=== PATIENT | male | born 1950 | race African-American/Black ===

== ENCOUNTER 2016-12-21 20:08 | Emergency (ER) | payer OTHER ==
[2016-12-21 20:17] VITALS: BP 130/81; TEMP 97.7; BMI 24.2
--- NOTE | 2016-12-21 20:23 | PDOC ---
History of Present Illness - General History Source: Patient Exam Limitations: No Limitations - History of Present Illness Initial Comments: 12/21/16 20:39 The patient is a 66 year old male with a significant past medical history of chronic left-sided numbness and frequent tingling on the left side of face, who presents to the ER with cramps in bilateral legs for two days. Patient states he had a sudden onset of cramping in the left calf last night. He reports that the cramping persisted and he developed cramps on the right calf this morning. Patient says the cramping is accompanied by the chronic left-sided numbness. Patient also complains of ringing in the ears for several weeks. Patient reports he takes [id number] Calcium and Magnesium tablets. 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 <Summer Gotti - Last Filed: 12/21/16 20:39> <Eliane Wisdom - Last Filed: 12/21/16 23:00> - General Chief Complaint: Muscle Cramping Stated Complaint: CRAMPS IN LEG SINCE YESTERDAY Time Seen by Provider: 12/21/16 20:22 Past History <Summer Gotti - Last Filed: 12/21/16 20:39> - Past Medical History Other medical history: Pt denies - Psycho/Social/Smoking Cessation Hx Suicidal Ideation: No Smoking History: Never smoked Hx Alcohol Use: No Drug/Substance Use Hx: No Substance Use Type: None <Eliane Wisdom - Last Filed: 12/21/16 23:00> - Past Medical History Allergies/Adverse Reactions: Allergies Allergy/AdvReac Type Severity Reaction Status Date / Time No Known Allergies Allergy Verified 12/21/16 20:13 Home Medications: Ambulatory Orders NK [No Known Home Medication] 12/21/16 Review of Systems - Review of Systems Able to Perform ROS?: Yes Comments:: 12/21/16 20:40 CONSTITUTIONAL: Absent: fever, no chills, no fatigue EYES: Absent: visual changes ENT: Present: (+) tinnitus Absent: ear pain, no sore throat CARDIOVASCULAR: Absent: chest pain, no palpitations RESPIRATORY: Absent: cough, no SOB GI: Absent: abdominal pain, no nausea, no vomiting, no constipation, no diarrhea GENITOURINARY: Absent: dysuria, no frequency, no hematuria MUSCULOSKELETAL: Present: (+) Lower extremity cramping and numbness Absent: back pain, no arthralgia SKIN: Absent: rash NEURO: Absent: headache <Summer Gotti - Last Filed: 12/21/16 20:39> *Physical Exam - Vital Signs Last Vital Signs Temp Pulse Resp BP Pulse Ox 97.7 F 58 L 19 130/81 100 12/21/16 20:14 12/21/16 20:14 12/21/16 20:14 12/21/16 20:14 12/21/16 20:14 - Physical Exam Comments: 12/21/16 20:41 GENERAL: Well-appearing, well-nourished. No apparent distress. HEENT: Normocephalic, atraumatic. PERRL, EOM intact. CARDIOVASCULAR: Normal S1, S2. Regular rate and rhythm. PULMONARY: Clear to auscultation bilaterally. ABDOMEN: Soft, non-distended, non-tender. EXTREMITIES: Normal ROM in all four extremities. No gross deformities. SKIN: Warm, dry. No rash NEUROLOGICAL: No focal neurological deficits. <Summer Gotti - Last Filed: 12/21/16 20:39> - Vital Signs Last Vital Signs Temp Pulse Resp BP Pulse Ox 97.7 F 58 L 19 130/81 100 12/21/16 20:14 12/21/16 20:14 12/21/16 20:14 12/21/16 20:14 12/21/16 20:14 <Eliane Wisdom - Last Filed: 12/21/16 23:00> ED Treatment Course - LABORATORY CBC & Chemistry Diagram: 12/21/16 20:45 12/21/16 20:45 <Eliane Wisdom - Last Filed: 12/21/16 23:00> Medical Decision Making - Medical Decision Making 12/21/16 22:59 Labd normal; exam normal. Pt will be discharged home. He feels better with hydration. Pt advised to stop taking mag+/ca+ supplemets and to get his supplementation from actual food, fruits and veggies. <Eliane Wisdom - Last Filed: 12/21/16 23:00> *DC/Admit/Observation/Transfer - Attestations Scribe Attestion: 12/21/16 20:42 Documentation prepared by Sumemr Gotti, acting as medical billing manager for Eliane Wisdom MD. <Summer Gotti - Last Filed: 12/21/16 20:39> - Discharge Dispostion Admit: No <Eliane Wisdom - Last Filed: 12/21/16 23:00> Diagnosis at time of Disposition: Muscle cramps - Discharge Dispostion Disposition: HOME Condition at time of disposition: Stable - Patient Instructions Printed Discharge Instructions: Nocturnal Leg Cramps
[2016-12-21] MEDS ORDERED: MAGNESIUM SULF 50% (8.12 MEQ/2 ML-1 GM VIAL) IVPB ONE (20:24)
[2016-12-21] MEDS ORDERED: SODIUM CHLORIDE 0.9% 500 ML INFUS.BAG IV ONE (20:24)
[2016-12-21 20:54] LABS: BASOPHIL 0.8 % (0-2.0); EOSINOPHIL 1.3 % (0-4.5); MCH 28.1 pg (25.7-33.7); MCHC 31.9 g/dl (32.0-35.9); MEAN CELL VOLUME 88.3 fl (80-96); MEAN PLT VOLUME 7.5 fl (7.5-11.1); NEUTROPHILS 41.3 % (42.8-82.8); PLATELET COUNT 225 K/MM3 (134-434); RDW 14.7 % (11.9-15.9); WHITE BLOOD COUNT 5.9 K/mm3 (4.0-10.0)
[2016-12-21 21:19] VITALS: PULSE 52
[2016-12-21 21:22] LABS: ALBUMIN 3.7 g/dl (3.4-5.0); ANION GAP 6 (8-16); BILIRUBIN,TOTAL 0.2 mg/dL (0.2-1.0); CALCIUM 8.8 mg/dL (8.5-10.1); CO2 32 mmol/L (21-32); COCKROFT - GAULT 56.69; CREATININE 1.2 mg/dL (0.7-1.3); GLUCOSE,RANDOM 87 mg/dL (74-106); SGOT/AST 21 U/L (15-37); SGPT/ALT 30 U/L (12-78); TOT PROT 7.1 g/dl (6.4-8.2)
[2016-12-21 21:23] LABS: ALK PHOS 64 U/L (45-117)
== END 2016-12-21 22:00 | disposition home or self-care (01) ==
LOC: JER 20:08
PROC: 3E033GC Introduction of Other Therapeutic Substance into Peripheral Vein, Percutaneous Approach (ICD-10-PCS; principal; 2016-12-21)
DX: M62.838 Other muscle spasm (principal)
CPT/HCPCS: 36415; 80053; 83735; 85025; 99284-25

== ENCOUNTER 2021-08-28 11:50 | Emergency (ER) | payer OTHER ==
[2021-08-28 12:02] VITALS: TEMP 97.7; BMI 25.8
[2021-08-28] MEDS ORDERED: ASPIRIN 81 MG CHEWABLE TABLETS PO ONE (13:03)
[2021-08-28] MEDS ORDERED: ASPIRIN 81 MG CHEWABLE TABLETS ONE (13:06)
[2021-08-28 13:26] LABS: EOS % 0.9 % (0-4.5); HEMATOCRIT 48.6 % (35.4-49); HEMOGLOBIN 15.8 GM/dL (11.7-16.9); LYMPH % 49.2 % (8-40); MCH 28.6 pg (25.7-33.7); MCHC 32.5 g/dl (32.0-35.9); MEAN PLT VOLUME 7.5 fl (7.5-11.1); MONO % 8.2 % (3.8-10.2); NEUT % 40.7 % (42.8-82.8); PLATELET COUNT 267 10^3/uL (134-434); RBC 5.52 M/mm3 (4.00-5.60); RDW 14.7 % (11.9-15.9); WHITE BLOOD COUNT 4.4 K/mm3 (4.0-10.0)
[2021-08-28 14:38] LABS: CHLORIDE 108 mmol/L (98-107); SODIUM 141 mmol/L (136-145)
[2021-08-28 14:40] LABS: CALCIUM 9.2 mg/dL (8.5-10.1)
[2021-08-28 14:41] LABS: ALBUMIN 4.1 g/dl (3.4-5.0); ANION GAP 7 MMOL/L (8-16); BLOOD UREA NITROGEN 14.2 mg/dL (7-18); CO2 26 mmol/L (21-32); GLUCOSE,RANDOM 93 mg/dL (74-106); MAGNESIUM 2.5 mg/dL (1.8-2.4)
[2021-08-28 14:44] LABS: CREATININE 1.1 mg/dL (0.55-1.3); SGOT/AST 21 U/L (15-37); SGPT/ALT 30 U/L (13-61)
[2021-08-28 14:45] LABS: BILIRUBIN,TOTAL 0.5 mg/dL (0.2-1)
[2021-08-28 14:46] LABS: ALK PHOS 80 U/L (45-117)
[2021-08-28 16:00] VITALS: BP 152/89; PULSE 90
== END 2021-08-28 16:25 | disposition left against medical advice (07) ==
LOC: JER 11:50
DX: R07.9 Chest pain, unspecified (principal); R03.0 Elevated blood-pressure reading, without diagnosis of hypertension
CPT/HCPCS: 36415; 71045-TC-FY; 80053; 82550; 82553; 83735; 84484; 85025; 93005; 93010; 99284-25

== ENCOUNTER 2022-12-29 10:24 | Observation (INO) | payer OTHER ==
[2022-12-29] MEDS ORDERED: SODIUM CHLORIDE 1,000 ML IV SCH (11:45)
[2022-12-29 12:22] LABS: BASO % 0.5 % (0-2.0); EOS % 0.1 % (0-4.5); HEMATOCRIT 47.4 % (35.4-49); HEMOGLOBIN 15.8 GM/dL (11.7-16.9); LYMPH % 13.8 % (8-40); MCH 28.6 pg (25.7-33.7); MCHC 33.4 g/dl (32.0-35.9); MEAN CELL VOLUME 85.8 fl (80-96); MEAN PLT VOLUME 7.6 fl (7.5-11.1); MONO % 4.1 % (3.8-10.2); NEUT % 81.5 % (42.8-82.8); PLATELET COUNT 235 10^3/uL (134-434); RBC 5.52 M/mm3 (4.00-5.60); RDW 14.5 % (11.9-15.9); WHITE BLOOD COUNT 8.3 K/mm3 (4.0-10.0)
[2022-12-29 12:28] LABS: INR 0.92 (0.83-1.09); PROTHROMBIN TIME (PATIENT) 10.7 SEC (9.7-13.0)
[2022-12-29 12:31] LABS: ACTIVATED PTT 28.2 SECONDS (25.2-36.5)
[2022-12-29 12:35] LABS: CALCIUM 9.5 mg/dL (8.5-10.1)
[2022-12-29 12:36] LABS: ALBUMIN 3.9 g/dl (3.4-5.0); BLOOD UREA NITROGEN 15.8 mg/dL (7-18)
[2022-12-29 12:38] LABS: CREATININE 1.1 mg/dL (0.55-1.3)
[2022-12-29 12:40] LABS: BILIRUBIN,TOTAL 0.8 mg/dL (0.2-1); TOT PROT 7.5 g/dl (6.4-8.2)
[2022-12-29 15:51] LABS: URINE APPEARANCE CLEAR; URINE BILIRUBIN NEGATIVE (NEGATIVE); URINE COLOR YELLOW; URINE GLUCOSE (UA) NEGATIVE (NEGATIVE); URINE KETONE NEGATIVE (NEGATIVE); URINE LEUK ESTERASE NEGATIVE (NEGATIVE); URINE NITRITE NEGATIVE (NEGATIVE); URINE PROTEIN NEGATIVE (NEGATIVE); URINE UROBILINOGEN 0.2 mg/dL (0.2-1.0)
[2022-12-29] MEDS ORDERED: MECLIZINE HCL 25 MG TABLET (FP) PO PRN (18:09)
[2022-12-29 20:38] VITALS: BMI 25.5
[2022-12-30 07:52] LABS: BASO % 0.6 % (0-2.0); EOS % 0.5 % (0-4.5); HEMATOCRIT 47.9 % (35.4-49); HEMOGLOBIN 15.6 GM/dL (11.7-16.9); LYMPH % 35.4 % (8-40); MCH 28.5 pg (25.7-33.7); MCHC 32.5 g/dl (32.0-35.9); MEAN CELL VOLUME 87.8 fl (80-96); MEAN PLT VOLUME 8.3 fl (7.5-11.1); MONO % 8.8 % (3.8-10.2); NEUT % 54.7 % (42.8-82.8); PLATELET COUNT 233 10^3/uL (134-434); RBC 5.46 M/mm3 (4.00-5.60); RDW 14.5 % (11.9-15.9); WHITE BLOOD COUNT 5.8 K/mm3 (4.0-10.0)
[2022-12-30 08:19] LABS: POTASSIUM 3.9 mmol/L (3.5-5.1)
[2022-12-30 08:21] LABS: BLOOD UREA NITROGEN 17.3 mg/dL (7-18)
[2022-12-30 09:16] VITALS: BP 136/82; PULSE 62; RESP 18; TEMP 98.8
[2022-12-31] MEDS ORDERED: LOSARTAN POTASSIUM 25 MG TABLET PO SCH (10:00)
== END 2022-12-30 13:29 | disposition home or self-care (01) ==
LOC: JER 10:24 → INTOOBSV 13:44 → UNDOADMOB 13:44 → JERBED 13:44 → J4W 19:24 → JERBED 19:24 → J4W 19:24
PROVIDERS: ADMIT Internal Medicine; ATTEND Internal Medicine
PROC: 3E0337Z Introduction of Electrolytic and Water Balance Substance into Peripheral Vein, Percutaneous Approach (ICD-10-PCS; principal; 2022-12-29)
DX: G45.9 Transient cerebral ischemic attack, unspecified (principal); R42 Dizziness and giddiness; R93.0 Abnormal findings on diagnostic imaging of skull and head, not elsewhere classified
CPT/HCPCS: 36415; 70450-TC; 70551-TC; 80048; 80053; 80061; 81003; 83036; 85025; 85610; 85730; 86850; 86900; 86901; 93005; 93010; 96360; 97116-GP; 97161-GP; 99285-25; G0378